=== PATIENT | male | born 1955 | race Caucasian/White ===

== ENCOUNTER → 2017-09-28 | Outpatient (CLI) | payer BC | LOC: WCC 16:00 | PROVIDERS: ATTEND Internal Medicine Infectious Disease | DX: S51.802A Unspecified open wound of left forearm, initial encounter (principal); W39.XXXA Discharge of firework, initial encounter ==

== ENCOUNTER → 2017-10-05 | Outpatient (CLI) | payer BC ==
[~2017-10-05] MED LIST: LIDOCAINE/PRILOCAINE 2.5-2.5% KIT ONE
== END ==
LOC: WCC 09:18
PROVIDERS: ATTEND Internal Medicine Infectious Disease
DX: S51.802A Unspecified open wound of left forearm, initial encounter (principal); W39.XXXA Discharge of firework, initial encounter

== ENCOUNTER → 2017-10-12 | Outpatient (CLI) | payer BC ==
[~2017-10-12] MED LIST changes: +LIDOCAINE VISC 2% SOLN 15 ML UDC ONE; -LIDOCAINE/PRILOCAINE 2.5-2.5% KIT ONE
== END ==
LOC: WCC 09:14
PROVIDERS: ATTEND Internal Medicine Infectious Disease
DX: S51.802A Unspecified open wound of left forearm, initial encounter (principal); W39.XXXA Discharge of firework, initial encounter
CPT/HCPCS: 36415; 82948

== ENCOUNTER → 2017-11-09 | Outpatient (CLI) | payer BC | LOC: WCC 09:22 | PROVIDERS: ATTEND Internal Medicine Infectious Disease | DX: S51.802A Unspecified open wound of left forearm, initial encounter (principal); W39.XXXA Discharge of firework, initial encounter | CPT/HCPCS: 36415; 82948 ==

== ENCOUNTER 2018-05-30 12:20 | Observation (INO) | payer BC ==
[2018-05-29 11:01] LABS: BASOPHILS # (AUTO) 0.1 (0.0-0.1); EOSINOPHILS # (AUTO) 0.2 (0.0-0.4); EOSINOPHILS % 3.3 % (0.0-6.0); HEMATOCRIT 42.6 % (38.2-49.6); LYMPHOCYTES # (AUTO) 2.1 (1.0-3.2); LYMPHOCYTES % 35.9 % (18.0-39.1); MEAN CORPUSCULAR HEMOGLOBIN 32.3 pg (28-32); MEAN CORPUSCULAR HGB CONC 35.2 g/dL (31-35); MEAN CORPUSCULAR VOLUME 91.6 fL (81-99); MONOCYTES # (AUTO) 0.3 (0.2-0.8); MONOCYTES % 5.5 % (4.4-11.3); NEUTROPHILS # (AUTO) 3.1 (2.1-6.9); PLATELET COUNT 157 x10e3/uL (140-360); RED BLOOD COUNT 4.65 x10e6/uL (4.3-5.7); RED CELL DISTRIBUTION WIDTH 12.6 % (11.7-14.4)
--- NOTE | 2018-05-29 11:12 | Diagnostic Imaging Report ---
PROCEDURE: X-RAY CHEST, TWO VIEWS COMPARISON: None. INDICATIONS: PREOPERATIVE CHEST XRAY FOR HERNIA REPAIR SURGERY FINDINGS: LUNGS: No consolidations or edema. PLEURA: No effusions or pneumothorax. HEART & MEDIASTINUM: The heart is within normal size-limits. BONES & SOFT TISSUES: No acute findings. CONCLUSION: No acute thoracic abnormality. Jose De La Vega D.O. Dictated by: Jose De La Vega D.O. on 05/29/2018 at 11:24 Electronically approved by: Jose De La Vega D.O. on 05/29/2018 at 11:24
[2018-05-29 11:20] LABS: ANION GAP 12.5 mmol/L (8-16); BLOOD UREA NITROGEN 11 mg/dL (7-26); BUN/CREATININE RATIO 12 (6-25); CALCIUM 9.5 mg/dL (8.4-10.2); CARBON DIOXIDE 26 mmol/L (22-29); CHLORIDE 105 mmol/L (98-107); CREATININE, SERUM 0.95 mg/dL (0.72-1.25); EST GLOMERULAR FILTRATION RATE > 60 ML/MIN (60-); GLUCOSE 108 mg/dL (74-118); POTASSIUM 4.5 mmol/L (3.5-5.1); SODIUM 139 mmol/L (136-145)
[~2018-05-30] VITALS: Ht 182.9 cm; Wt 101.8 kg
[~2018-05-30 12:20] MED LIST changes: -LIDOCAINE VISC 2% SOLN 15 ML UDC ONE; +METFORMIN HCL500 MG PO; +NAPROXEN500 MG PO
--- OUTSIDE RECORDS SUMMARY | 2018-05-30 12:22 | XMS REPORT ---
Author Author [facility] Address Unknown Phone Unavailable Care Team Providers Care Manufacturing Storeperson Name Role Phone Delmar WOOD Unavailable Unavailable Problems This patient has no known problems. Allergies, Adverse Reactions, Alerts This patient has no known allergies or adverse reactions. Medications This patient has no known medications. Results Test Description Test Time Test Comments Text Results Atomic Results Result Comments CHEST 2 VIEWS 2018-05-29 11:24:00 [place] [id number] Patient Name: TANI LOPEZ III MR #: [id number] : 1955 Age/Sex: 62/M Req #: [id number] [facility] Physician: Ordered by: LIDIA WOOD MD Report #: [id number] Location: OR Room/Bed: Procedure: [id number] DX/CHEST 2 VIEWS Exam Date: 05/29/18 Exam Time: 1050 REPORT STATUS: Signed PROCEDURE: X-RAY CHEST, TWO VIEWS COMPARISON: None. I NDICATIONS: PREOPERATIVE CHEST XRAY FOR HERNIA REPAIR SURGERY FINDINGS: LUNGS: No consolidations or edema. PLEURA: No effusions or pneumothorax. HEART MEDIASTINUM: The heart is within normal size- limits. BONES SOFT TISSUES: No acute findings. CONCLUSION: No acute thoracic abnormality. Any De La Vega D.O. Dictated by: Any De La Vega D.O. on 05/29/2018 at 11:24 Electronically approved by: Any De La Vega D.O. on 05/29/2018 at 11:24 Dictated By: ANY DE LA VEGA DO 1124 Transcribed By: JANN on 05/29/18 1124 COPY TO: LIDIA WOOD MD
[2018-05-30] MEDS ORDERED: GLYCOPYRROLATE INJ 1MG/ 5 ML SYR ONE (14:17)
[2018-05-30] MEDS ORDERED: ONDANSETRON HCL INJ 2 MG/ML VIAL ONE (14:17)
[2018-05-30] MEDS ORDERED: PROPOFOL IV EMULSION 10 MG/ML 20 ML VIAL ONE (14:17)
[2018-05-30] MEDS ORDERED: SEVOFLURANE INHAL SOLN 250 ML PEN BTL ONE (14:17)
[2018-05-30] MEDS ORDERED: LIDOCAINE HCL 2% LOCAL INJ 5 ML SDV VIAL INJ ONE (14:17)
[2018-05-30] MEDS ORDERED: NEOSTIGMINE 5 MG/5ML SYR ONE (14:17)
[2018-05-30] MEDS ORDERED: ROCURONIUM BROMIDE 10 MG/ML 5ML VIAL ONE (14:17)
[2018-05-30] MEDS ORDERED: DEXAMETHASONE SOD PHOS INJ 4 MG/ML VIAL ONE (14:17)
[2018-05-30] MEDS ORDERED: BUPIVACAINE 0.25% 30ML SDV INJ ONE (14:21)
[2018-05-30] MEDS ORDERED: BUPIVACAINE 0.5%/EPI 30 ML SDV INJ ONE (14:21)
[2018-05-30] MEDS ORDERED: FENTANYL CITRATE/PF 100MCG/2 ML INJ ONE ×2 (15:36→17:17)
[2018-05-30] MEDS ORDERED: MIDAZOLAM HCL 2 MG/2 ML VIAL ONE (15:36)
[2018-05-30] MEDS ORDERED: ONDANSETRON HCL INJ 2 MG/ML VIAL IV PRN (17:15)
--- NOTE | 2018-05-30 17:54 | Operative Report ---
DATE OF PROCEDURE: May 30, 2018 PREOPERATIVE DIAGNOSIS: Ventral hernias times 2. POSTOPERATIVE DIAGNOSIS: Ventral hernias times 2. OPERATION PERFORMED: Repair of ventral hernia times 2 with mesh. ANESTHESIA: General. COMPLICATIONS: None. ESTIMATED BLOOD LOSS: Minimal. DESCRIPTION OF PROCEDURE: With the patient lying in bed in the supine position under good general endotracheal anesthesia, the abdomen was prepped with Betadine solution and draped in the usual manner. The old chevron incision was then re-opened in its midportion, extending both into the right and left rectus muscles. The incision was deepened through the subcutaneous tissue, and immediately two defects were encountered, one on each side of the rectus fascia, with two hernias, one coming through the right rectus and the other one coming through the left rectus muscle. The two hernia defects were then dissected with normal fascia all the way around. The fascia on both sides was somewhat attenuated, and the muscle was significantly attenuated from the bilateral subcostal incisions that the patient had had. The hernia sacs were then slowly and carefully from the fascia and reduced back to the intraabdominal cavity. The preperitoneal space was then accessed, and flaps were then developed all the way around. A medium-sized piece of Physiomesh was then placed in the preperitoneal space and deployed without any difficulty. All 6 corners were then anchored using interrupted sutures of 0 Ethibond in all 6 corners, and using the tacker the mesh was tacked all the way around without any problems. Once this was done, the whole area was inspected. The mesh was properly anchored in all areas. The fascial defect was then closed transversely using a running suture of 0 Prolene. This gave us a satisfactory closure without any tension. The whole area was then thoroughly irrigated. Perfect hemostasis was ascertained. A 10 flat Evelio-Villafuerte drain was then left in the subcutaneous tissue and brought out through a separate stab wound incision. The subcutaneous tissue was approximated with 2-0 Vicryl, and the skin was closed with clips. Dressings were applied. The sponge, lap and needle count was correct. The patient tolerated the procedure well and returned to the recovery room in stable condition. Job#: [id number]
[2018-05-30 18:00] VITALS: BP 137/78
[2018-05-30] MEDS: PANTOPRAZOLE 40 MG 10ML VIAL IV SCH (18:44)
[2018-05-30] MEDS: SODIUM CHLORIDE 0.9% 1000ML 1,000 ML IV SCH (18:45)
--- NOTE | 2018-05-30 18:45 | NUR ---
PATIENT RECEIVED FROM RECOVERY AT 1740; HE'S ALERT, ORIENTED X4, NO RESPIRATORY DISTRESS OBSERVED. SURGICAL DRESSING DRY AND INTACT TO THE ABDOMEN WITH RUTHIE DRAIN INTACT, ABDOMINAL BINDER ON THE PATIENT. HE C/O PAIN TO THE ABDOMEN WITH PAIN SCORE #6, HE WAS MEDICATED FOR PAIN PRIOR TO COMING TO THE FLOOR. IV INTACT TO THE RIGHT HAND WITH IV FLUID INFUSING, CALL LIGHT IN EASY REACH, FAMILY MEMBERS WITH THE PATIENT.
[2018-05-30] MEDS: HYDROCODONE/APAP 7.5MG-325MG 1 EA TAB PO PRN (19:24)
[2018-05-30 20:00] VITALS: BP 117/69
[2018-05-30 20:05] VITALS: BP 117/69
[2018-05-30] MEDS: HYDROMORPHONE 2MG/ML 2 MG/ML ML IV PRN (21:45)
[2018-05-30] MEDS: CEFAZOLIN SOD 1 GM/D5W 50ML 50 ML IV SCH (22:30)
[2018-05-31] VITALS (8 sets, daily range): BP systolic 112–131; BP diastolic 65–75
[2018-05-31] MEDS: SODIUM CHLORIDE 0.9% 1000ML 1,000 ML IV SCH ×3 (03:03→21:37)
[2018-05-31] MEDS: HYDROMORPHONE 2MG/ML 2 MG/ML ML IV PRN ×2 (03:30→08:48)
--- NOTE | 2018-05-31 03:40 | NUR ---
Assisted pt to the restroom. Pt able to void in the toilet. Will continue to monitor.
[2018-05-31 05:57] LABS: BASOPHILS % 0.2 % (0.0-1.0); HEMOGLOBIN 13.7 g/dL (14.0-18.0); LYMPHOCYTES # (AUTO) 1.2 (1.0-3.2); MEAN CORPUSCULAR HEMOGLOBIN 31.9 pg (28-32); MEAN CORPUSCULAR HGB CONC 35.1 g/dL (31-35); MEAN CORPUSCULAR VOLUME 90.9 fL (81-99); MONOCYTES # (AUTO) 0.4 (0.2-0.8); MONOCYTES % 4.5 % (4.4-11.3); NEUTROPHILS # (AUTO) 7.5 (2.1-6.9); PLATELET COUNT 166 x10e3/uL (140-360); RED BLOOD COUNT 4.29 x10e6/uL (4.3-5.7); RED CELL DISTRIBUTION WIDTH 12.6 % (11.7-14.4)
[2018-05-31] MEDS: CEFAZOLIN SOD 1 GM/D5W 50ML 50 ML IV SCH (06:00)
[2018-05-31 06:24] LABS: ANION GAP 14.7 mmol/L (8-16); BLOOD UREA NITROGEN 14 mg/dL (7-26); BUN/CREATININE RATIO 15 (6-25); CALCIUM 9.2 mg/dL (8.4-10.2); CARBON DIOXIDE 25 mmol/L (22-29); CHLORIDE 99 mmol/L (98-107); CREATININE, SERUM 0.95 mg/dL (0.72-1.25); EST GLOMERULAR FILTRATION RATE > 60 ML/MIN (60-); GLUCOSE 122 mg/dL (74-118); POTASSIUM 4.7 mmol/L (3.5-5.1); SODIUM 134 mmol/L (136-145)
[2018-05-31] MEDS: METFORMIN HCL 500 MG TAB PO SCH (08:47)
[2018-05-31] MEDS: HYDROCODONE/APAP 7.5MG-325MG 1 EA TAB PO PRN ×4 (08:48→23:34)
--- NOTE | 2018-05-31 15:05 | NUR ---
Visit made by the Spiritual Care Department Pastoral Visitor, Yudelka Mina. PV provided pastoral presence, prayer, hospitality, and supportive listening. Pastoral Visitor informed pt/family of the scope of [employer] and availability. BILLIE DIEGO Turner Machine Operator Spiritual Care Department O: [phone] Pager: [phone] ([phone] number calling from)
[2018-05-31] MEDS: PANTOPRAZOLE 40 MG 10ML VIAL IV SCH (17:35)
--- NOTE | 2018-05-31 19:10 | NUR ---
REPORT TAKEN FROM MORNING JULIANA ANDERS.PT IS LYEING IN THE BED.
--- NOTE | 2018-05-31 22:00 | NUR ---
ASSESSMENT DONE.NO RESP.DISTRESS.DRESSING SITE IS DRY AND INTACT.MEDICATED WITH NORCO.VOIDED.AMBULATES.BED LOCKED AND IN LOWEST POSITION.PHONE AND CALL LIGHT WITHIN REACH.INSTRUCTED TO CALL FOR ASISTANCE NEEDED.
[2018-06-01] VITALS: BP 124/66
[2018-06-01] MEDS: HYDROCODONE/APAP 7.5MG-325MG 1 EA TAB PO PRN ×4 (03:30→16:27)
[2018-06-01 04:00] VITALS: BP 119/65
--- NOTE | 2018-06-01 07:00 | NUR ---
Report given to the oncoming RN.walking rounds done.stable condition.
[2018-06-01] MEDS: METFORMIN HCL 500 MG TAB PO SCH (07:46)
[2018-06-01 08:33] VITALS: BP 116/64
[2018-06-01 09:07] VITALS: BP 116/64
[2018-06-01] MEDS: SODIUM CHLORIDE 0.9% 1000ML 1,000 ML IV SCH (09:59)
[2018-06-01 12:50] VITALS: BP 123/71
[2018-06-01] MEDS ORDERED: KEFLEX500 MG PO (16:02)
[2018-06-01] MEDS ORDERED: NORCO 7.5-3251 EACH PO (16:03)
--- NOTE | 2018-06-01 16:28 | NUR ---
DISCHARGE INSTRUCTIONS AND PRESCRIPTIONS GIVEN, PT VERBALIZED UNDERSTANDING. PT IV DC PRESSURE DRESSING APPLIED AND TAPED. INSTRUCTED TO TO NOT REMOVE DRESSING UNTIL FOLLOW UP VISIT WITH MD ALCAZAR PER HIS ORDERS. PT VERBALIZED UNDERSTANDING. TEACHING OVER RUTHIE DRAIN ALSO DONE. PT IS READY FOR DC AT THIS TIME
[2018-06-01 16:44] VITALS: BP 120/77
--- NOTE | 2018-06-01 17:01 | NUR ---
PT OFF UNIT VIA WHEEL CHAIR TO HOME
== END 2018-06-01 16:50 | disposition home or self-care (01) ==
LOC: OR 12:20 → INTOOBSV 18:03 → MED/SURG 18:03
PROVIDERS: ADMIT Surgery; ATTEND Surgery
DX: K43.9 Ventral hernia without obstruction or gangrene (principal); E11.9 Type 2 diabetes mellitus without complications; Z86.19 Personal history of other infectious and parasitic diseases; Z79.84 Long term (current) use of oral hypoglycemic drugs; Z88.5 Allergy status to narcotic agent
CPT/HCPCS: 36415 ×4; 49560; 49568; 71046; 80048 ×2; 82948 ×3; 85025 ×2; 93005; C1781; G0378 ×3; J0690 ×2; J1100; J1170 ×2; J2001; J2250; J2405; J2704; J3490; J7030 ×3